=== PATIENT | male | born 1945 | race Caucasian/White ===

== ENCOUNTER 2022-12-28 06:00 | Day surgery (SDC) | payer MEDICARE, SELFPAY ==
[2022-10-16 11:21] VITALS: BMI 33.4
[2022-12-16 09:37] VITALS: BMI 33.4
--- NOTE | 2022-12-27 20:45 | WPDANESEPPF ---
Anes - Initial Pre Proc Eval Procedure: Operation Date: 12/28/22 07:30 Proposed Procedures p Screening Colonoscopy - Trey Leo MD Date/Time: 12/27/22 20:45 Surgeon: Trey Leo MD Pre Op Diagnosis: History of colon polyps Patient Data Age: 77 Gender: M Height: 1.73 m Weight: 99.7 kg Allergies Allergy/AdvReac Type Severity Reaction Status Date / Time cephalexin Allergy Unknown ITCHEY Verified 12/28/22 06:32 RASH YRS AGO BOB Inhibitors AdvReac Severe angioedema Verified 12/28/22 06:32 Home Medications Medication Instructions Recorded Confirmed Type cetirizine 10 mg tablet 10 mg PO DAILY PRN allergy 09/16/22 12/28/22 Rx symptoms #90 tabs mupirocin 2 % topical ointment 1 applic topical BID #22 grams 09/16/22 12/28/22 Rx sodium,potassium,mag sulfates 17.5 See Rx Instructions PO .COMPLEX 10/16/22 12/28/22 Rx gram-3.13 gram-1.6 gram oral soln #354 mL (Suprep Bowel Prep Kit) amlodipine 10 mg tablet 10 mg PO DAILY #90 tabs 12/17/22 12/28/22 Rx dulaglutide 1.5 mg/0.5 mL 1.5 mg (0.5 mL) subcut WEEKLY 3 12/17/22 12/28/22 Rx subcutaneous pen injector months #6.5 mL (Trulicity) ezetimibe 10 mg-simvastatin 20 mg 1 tablet PO QHS #90 tabs 12/17/22 12/28/22 Rx tablet (Vytorin) hydrochlorothiazide 25 mg tablet 25 mg PO DAILY #90 tabs 12/17/22 12/28/22 Rx insulin detemir U-100 100 unit/mL 48 unit (0.48 mL) subcut BID 3 12/17/22 12/28/22 Rx (3 mL) subcutaneous pen (Levemir months #90 mL FlexTouch U-100 Insulin) metformin 1,000 mg tablet 1,000 mg PO BID #180 tabs 12/17/22 12/28/22 Rx pen needle, diabetic 32 gauge x #200 ea 12/17/22 12/28/22 Rx 32 (TechLITE Pen Needle) blood sugar diagnostic (Accu-Chek #600 ea 12/21/22 12/28/22 Rx Ruth Plus test strips) blood-glucose meter (Accu-Chek 12/21/22 12/28/22 History Guide Glucose Meter) levothyroxine 50 mcg tablet 50 mcg PO DAILY #90 tabs 12/21/22 12/28/22 Rx Patient hx anesthesia problems: none Family hx anesthesia problems: none Results Review: All pre-operative results and documents have been reviewed as part of the pre-operative evaluation. [facility] Past Medical History Medical History (Updated 12/17/22 @ 10:16 by Sweetie Roberson PA-C) Diabetes Diastasis recti Dyslipidemia Hyperkalemia Hypertension Hypothyroidism Osteoarthritis Vitamin D deficiency Surgical History Surgical History History of colonoscopy 2017 repeat ??? History of knee replacement S/P laparoscopic appendectomy Family History Family History Father Diabetes mellitus Hypertension Heart disease Mother No problems noted. Social History Social History (Updated 12/17/22 @ 08:33 by Mary Wilson) Years smoked: 15 Smoking status: Former smoker Tobacco type: cigarettes Alcohol intake: current Drinks per week: 5 Substance use: never Substance use type: does not use Lack of Transportation: No Lack of Food: Never True Current Housing: I Have Housing Concerned About Future Housing: No Difficulty Paying Gas/Electric Bills: No Difficulty Paying for Meds: No Currently Unemployed: No Education: High School Diploma/GED Difficulty w/ Childcare or Family Care: No Living arrangements: with family Occupation/Education: retired Gender identity (if verbalized by the patient): Male Sexual Orientation (if Verbalized by the Patient): Straight or Heterosexual Spiritual care concerns: No Agree to blood products: Yes Anes - Eval Final PreProcedure Day of Procedure 12/27/22 20:45 Patient weight: obese Heart: regular rate and rhythm Lungs: clear to auscultation Airway: Mallampati scale class II Neurological: alert and oriented Last oral intake: >/= 8 hours ASA classification: III Emergent: no Anesthetic plan: proceed Anesthesia type and monitoring: general GIVS and ruth
[2022-12-28 06:25] VITALS: BP 150/104; PULSE 87; RESP 16; TEMP 36.9; O2SAT 97
[2022-12-28] MEDS: LACTATED RINGERS 1,000 ML 150 ML IV CONT (06:46)
--- NOTE | 2022-12-28 07:24 | PM.HPGS ---
History of Present Illness History of Present Illness Consent: Risks, benefits, and alternatives have been discussed and questions answered. Patient agrees to proceed with procedure. Chief complaint: History of colon polyps Narrative: Claudio Rodriguez is a 77 year old male Presents for screening colonoscopy. Patient has a history of colon polyps 10 years ago. That time had adenomatous colon polyps removed. Colonoscopy 2016 subsequently were unremarkable. Patient presents today for neoplasia screening colonoscopy. Patient's current weight appetite and bowel movements are normal. He denies abdominal pain. He has had no bleeding. Currently being treated for diabetes mellitus. Review of Systems Review of Systems: Review of systems noncontributory. [facility] Past Medical History Medical History (Updated 12/17/22 @ 10:16 by Sweetie Roberson PA-C) Diabetes Diastasis recti Dyslipidemia Hyperkalemia Hypertension Hypothyroidism Osteoarthritis Vitamin D deficiency Surgical History Surgical History History of colonoscopy 2017 repeat ??? History of knee replacement S/P laparoscopic appendectomy Family History Family History Father Diabetes mellitus Hypertension Heart disease Mother No problems noted. Social History Social History (Updated 12/17/22 @ 08:33 by Mary Wilson) Years smoked: 15 Smoking status: Former smoker Tobacco type: cigarettes Alcohol intake: current Drinks per week: 5 Substance use: never Substance use type: does not use Lack of Transportation: No Lack of Food: Never True Current Housing: I Have Housing Concerned About Future Housing: No Difficulty Paying Gas/Electric Bills: No Difficulty Paying for Meds: No Currently Unemployed: No Education: High School Diploma/GED Difficulty w/ Childcare or Family Care: No Living arrangements: with family Occupation/Education: retired Gender identity (if verbalized by the patient): Male Sexual Orientation (if Verbalized by the Patient): Straight or Heterosexual Spiritual care concerns: No Agree to blood products: Yes Meds Home Medications and Allergies Home Medications Medication Instructions Recorded Confirmed Type cetirizine 10 mg tablet 10 mg PO DAILY PRN allergy 09/16/22 12/28/22 Rx symptoms #90 tabs mupirocin 2 % topical ointment 1 applic topical BID #22 grams 09/16/22 12/28/22 Rx sodium,potassium,mag sulfates 17.5 See Rx Instructions PO .COMPLEX 10/16/22 12/28/22 Rx gram-3.13 gram-1.6 gram oral soln #354 mL (Suprep Bowel Prep Kit) amlodipine 10 mg tablet 10 mg PO DAILY #90 tabs 12/17/22 12/28/22 Rx dulaglutide 1.5 mg/0.5 mL 1.5 mg (0.5 mL) subcut WEEKLY 3 12/17/22 12/28/22 Rx subcutaneous pen injector months #6.5 mL (Trulicity) ezetimibe 10 mg-simvastatin 20 mg 1 tablet PO QHS #90 tabs 12/17/22 12/28/22 Rx tablet (Vytorin) hydrochlorothiazide 25 mg tablet 25 mg PO DAILY #90 tabs 12/17/22 12/28/22 Rx insulin detemir U-100 100 unit/mL 48 unit (0.48 mL) subcut BID 3 12/17/22 12/28/22 Rx (3 mL) subcutaneous pen (Levemir months #90 mL FlexTouch U-100 Insulin) metformin 1,000 mg tablet 1,000 mg PO BID #180 tabs 12/17/22 12/28/22 Rx pen needle, diabetic 32 gauge x #200 ea 12/17/22 12/28/22 Rx (TechLITE Pen Needle) blood sugar diagnostic (Accu-Chek #600 ea 12/21/22 12/28/22 Rx Urth Plus test strips) blood-glucose meter (Accu-Chek 12/21/22 12/28/22 History Guide Glucose Meter) levothyroxine 50 mcg tablet 50 mcg PO DAILY #90 tabs 12/21/22 12/28/22 Rx Allergies Allergy/AdvReac Type Severity Reaction Status Date / Time cephalexin Allergy Unknown ITCHEY Verified 12/28/22 06:32 RASH YRS AGO BOB Inhibitors AdvReac Severe angioedema Verified 12/28/22 06:32 Vital Signs Vital Signs - 24 hr 12/28/22 06:25 Temperature 98.4 F
[2022-12-28 07:38] LABS: Glucose Point of Care 208 mg/dl (65-105)
[2022-12-28 07:50] VITALS: BP 140/67; PULSE 77; RESP 14; O2SAT 98
[2022-12-28 08:00] VITALS: BP 138/73; PULSE 75; RESP 18; O2SAT 100
[2022-12-28 08:10] VITALS: BP 142/78; PULSE 76; RESP 18; O2SAT 99
--- NOTE | 2022-12-28 12:41 | WPDANESPN ---
Anes - Prog Note Post-Op Date/Time: 12/28/22 12:41 Cardiovascular status: normal Respiratory status: normal Airway patency: baseline Mental status: baseline Post-Op hydration status: normal Vital Signs: Last Vital Signs Temp 36.9 C 12/28/22 06:25 Pulse 76 12/28/22 08:10 Resp 18 12/28/22 08:10 BP 142/78 H 12/28/22 08:10 Pulse Ox 99 12/28/22 08:10 O2 Del Method Room Air 12/28/22 08:10 Pain Score (VAS): 0 I/O: Intake & Output 12/27/22 12/28/22 12/28/22 23:59 07:59 15:59 Intake Total 400 360 Balance 400 360 12/28/22 06:43 POC Capillary Glucose 208 H Post-procedural complaints: none Patient Feedback: Patient satisfied with anesthetic care. Other Findings: Patient vital signs back to baseline. Patient denies nausea and vomiting. Patient's pain under control. Patient OK for discharge.
== END 2022-12-28 08:35 | disposition home or self-care (01) ==
PROVIDERS: PCP Physician Assistant Medical; Visit Provider Internal Medicine Gastroenterology
PROC: 0DJD8ZZ Inspection of Lower Intestinal Tract, Via Natural or Artificial Opening Endoscopic (ICD-10-PCS; CPT 45378; principal; 2022-12-28 07:30)
DX: Z12.11 Encounter for screening for malignant neoplasm of colon (principal)
CPT/HCPCS: 45378

== ENCOUNTER 2023-09-02 08:45 | Outpatient (RCR) | payer MEDICARE, SELFPAY ==
--- NOTE | 2023-07-07 10:41 | PTOPEVAL1 ---
Assessment and note entered by Rose Mary Lowry, PT Evaluation Information Assessment Status Evaluation Diagnosis Unpec Arthritis unspec site, Pain in right shouler Onset a year Subjective Information Has seen Dr. Krishnamurthy, 2 months ago had x-rays that shows right shoulder arm bone has worn off. States was told to stop bowling by and had modification of [place] [facility] exercises. Loves to fish and casts left handed to continue this. Wednesday sharped the teeth of his serrated knife and had increased pain. Pt reports after he works out uses ice for 10 minutes. Reported Pain Level Pain Score 1: Self Report Assessment PT Clinical Summary Pt presents with c/o pain in right shoulder that has persisted for a year. Reports x-rays show that the arm bone is worn down . Has pain with reaching across his chest, and reaching behind especially. Evaluation demos significant lack of AROM in right shoulder with capsular end-feels. Pt will benefit from physical therapy to address deficits and improve function with less pain. Plan of Care Interventions Electrical Stimulation,Hot Pack/Cold Pack,Manual Therapy,Neuro Re-education,Patient/Caregiver Educati,Therapeutic Activities,Therapeutic Exercise,Ultrasound PT Services Indicated Yes Treatment Frequency and 1-2x weekly x 8 weeks Duration These treatments will address the objective and functional deficits as defined above. The patient will be advanced safely and appropriately in order for the patient to progress towards his/her prior level of function. Additional exercises will be introduced and as well as a comprehensive home exercise program upon discharge, if needed, ?to ensure carryover of functional gains achieved in the clinic. This treatment plan has been reviewed and agreement upon by the patient.
--- NOTE | 2023-07-07 10:41 | OPREHPOC ---
Outpatient Therapy Plan of Care This is a Multidisciplinary Plan of Care that may contain components documented by all disciplines (PT, OT, and ST.) PT Problem 1 PT Problem #1 Knowledge Deficit PT Goal 1 Goal Pt will be independent in HEP Pt will verbalize understanding of diagnosis and prognosis Target Visit 8 PT Problem 2 PT Problem #2 Impaired Range of Motion PT Goal 1 Goal Pt will demo RUE Passive ROM increase in flexion by 20 degrees Target Visit 8 PT Goal 2 Goal Pt will demo AROM of RUE: Flexion:120 Abduction:120 Internal rotation: L5 External rotation: base of skull Target Visit 16 PT Problem 3 PT Problem #3 Pain PT Goal 1 Goal Pt will report less pain with use of RUE in reaching Target Visit 8 PT Goal 2 Goal Pt will report greatest pain at 2/10 with any activity Target Visit 16
--- NOTE | 2023-08-05 10:21 | PTOPEVAL1 ---
Assessment and note entered by Anson Mcneal Evaluation Information Assessment Status Progress Diagnosis pain in right shoulder Onset a year Subjective Information Pt. reports that he has noticed signficant decrease in pain since beginning PT. He notes that he can reach overhead with more mobility and reach across his body. He still expresses concern regarding pain with descrbied end range of motion overhead. He states that given his progress thus far he would like to continue with PT to further improve strength and mobility with reaching overhead and behind his back. Reported Pain Level Pain Score 2: Self Report Assessment PT Clinical Summary Mr. Rodriguez has attended a total of 8 treatment sessions. In this time he has demonstrated improvements in proximal right u.e. ROM, and subjective pain reports. Despite improvements deficits remain with right shoulder IR and flexion active ROM impairing pt. ability to participate in IADL's. Continued skilled PT is indicated in order to continue to address shoulder ROM, ER and abduction strength at the right shoulder and continued pain to improve efficiency and comfort with IADL's. Plan of Care Interventions Electrical Stimulation,Hot Pack/Cold Pack,Manual Therapy,Patient/Caregiver Educati,Therapeutic Activities,Therapeutic Exercise PT Services Indicated Yes Treatment Frequency and 2x/week x 8 visits Duration These treatments will address the objective and functional deficits as defined above. The patient will be advanced safely and appropriately in order for the patient to progress towards his/her prior level of function. Additional exercises will be introduced and as well as a comprehensive home exercise program upon discharge, if needed, ?to ensure carryover of functional gains achieved in the clinic. This treatment plan has been reviewed and agreement upon by the patient.
[2023-09-02 08:46] VITALS: BP_SYST 120
--- NOTE | 2023-09-02 09:37 | PTOPDC ---
Assessment and note entered by Rose Mary Lowry, PT Assessment Status Discharge Diagnosis pain in right shoulder Onset a year Subjective Information Self perceived improvement: minimum of 50% improvement: Reports noted his increased movement in shoulder. notes greatly improved range of motion. Can reach across body more now. Reported Pain Level Pain Score 0: Self Report Assessment PT Clinical Summary Pt repots feeling at least 50% improved. States is using RUE more with activitive and movement without pain. Is using RUE more for fishing motions, is consistently doing his HEP stretching and working out at recreational center. Cont to demo significant deficits in ROM however pt feels confident in continuing his stretches and home program independently. Verbalizes understanding on returning to therapy as needed if he does not continue to progress. Thus patient is being discharged from therapy to continue HEP independently.
== END 2023-09-02 09:53 | disposition home or self-care (01) ==
LOC: ANHHIPT 08:45
PROVIDERS: PCP Physician Assistant Medical; Visit Provider Family Medicine
DX: M19.90 Unspecified osteoarthritis, unspecified site (principal); M25.511 Pain in right shoulder
CPT/HCPCS: 97014; 97110; 97140; 97162; 97750; G0283

== ENCOUNTER 2024-04-25 06:24 | Day surgery (SDC) | payer MEDICARE, SELFPAY ==
[2024-03-20 13:18] VITALS: BMI 36.6
[2024-04-19 08:03] VITALS: BMI 33.5
--- NOTE | 2024-04-24 11:38 | PM.HPGS ---
History of Present Illness History of Present Illness Consent: Risks, benefits, and alternatives have been discussed and questions answered. Patient agrees to proceed with procedure. Chief complaint: Anemia Narrative: Claudio Rodriguez is a 78 year old male Found to be anemic With a hemoglobin of 12.1.Also Hemoccult was positive. He had colonoscopy 1 year ago was unremarkable. Review of Systems Review of Systems: All systems reviewed & are unremarkable except as noted in HPI and below PMFSH Past Medical History Medical History Acute sinusitis Anemia Diabetes Diabetic nephropathy Diastasis recti Dyslipidemia Hyperkalemia Hypertension Hypothyroidism Need for vaccination Osteoarthritis Osteoarthritis Right shoulder pain URI (upper respiratory infection) Vitamin D deficiency Surgical History Surgical History History of colonoscopy 2017 repeat ??? History of knee replacement S/P laparoscopic appendectomy Family History Family History Father Diabetes mellitus Hypertension Heart disease Mother No problems noted. Social History Social History Years smoked: 15 Smoking status: Former smoker Tobacco type: cigarettes Alcohol intake: current Drinks per week: 5 Substance use: never Substance use type: does not use Lack of Transportation: No Lack of Food: Never True Current Housing: I Have Housing Concerned About Future Housing: No Difficulty Paying Gas/Electric Bills: No Difficulty Paying for Meds: No Currently Unemployed: No Education: High School Diploma/GED Difficulty w/ Childcare or Family Care: No Living arrangements: with family Occupation/Education: retired Gender identity (if verbalized by the patient): Male Sexual Orientation (if Verbalized by the Patient): Straight or Heterosexual Spiritual care concerns: No Agree to blood products: Yes Meds Home Medications and Allergies Home Medications Medication Instructions Recorded Confirmed Type blood-glucose meter (Accu-Chek 12/21/22 03/13/24 History Guide Glucose Meter) amlodipine 10 mg tablet 10 mg PO DAILY #90 tabs 12/15/23 04/25/24 Rx blood sugar diagnostic (Accu-Chek #600 ea 12/15/23 03/13/24 Rx Ruth Plus test strips) ezetimibe 10 mg-simvastatin 20 mg 1 tablet PO QHS #90 tabs 12/15/23 04/25/24 Rx tablet (Vytorin) hydrochlorothiazide 25 mg tablet 25 mg PO DAILY #90 tabs 12/15/23 04/25/24 Rx levothyroxine 50 mcg tablet 50 mcg PO DAILY #90 tabs 12/15/23 04/25/24 Rx metformin 1,000 mg tablet 1,000 mg PO BID #180 tabs 12/15/23 04/25/24 Rx pen needle, diabetic 32 gauge x #200 ea 12/15/23 03/13/24 Rx 5/32 (TechLITE Pen Needle) cetirizine 10 mg tablet (Zyrtec) 10 mg PO DAILY allergy symptoms 01/17/24 04/25/24 Rx #90 tabs flash glucose scanning reader #1 ea 03/13/24 03/13/24 Rx (FreeStyle Laurent 2 Tanner) flash glucose sensor (FreeStyle #6 ea 03/13/24 03/13/24 Rx Laurent 2 Sensor kit) semaglutide 0.25 mg or 0.5 mg (2 0.25 mg (0.368 mL) subcut WEEKLY 03/13/24 04/25/24 Rx mg/3 mL) subcutaneous pen injector #3 mL (Ozempic) insulin degludec 200 unit/mL (3 38 unit subcut BID 04/19/24 04/25/24 History mL) subcutaneous pen (Tresiba FlexTouch U-200 insulin) Allergies Allergy/AdvReac Type Severity Reaction Status Date / Time cephalexin Allergy Unknown ITCHEY Verified 04/25/24 07:18 RASH YRS AGO BOB Inhibitors AdvReac Severe angioedema Verified 04/25/24 07:18 Exam Resp: Auscultation: clear to auscultation bilaterally Cardio: Rate: regular rate Rhythm: regular rhythm GI: GI Palp: Yes Soft to palpation and No Tenderness to palpation present (GI) Assessment and Plan Assessment and plan (1) Anemia: Code(s): D64.9 - Anemia,
--- NOTE | 2024-04-24 15:24 | WPDANESEPPF ---
Anes - Initial Pre Proc Eval Procedure: Operation Date: 04/25/24 08:30 Proposed Procedures p Esophagogastroduodenoscopy - Darrel Castellanos MD Date/Time: 04/24/24 15:24 Surgeon: Darrel Castellanos MD Pre Op Diagnosis: Anemia Patient Data Age: 78 Gender: M Height: 1.73 m Weight: 100 kg Allergies Allergy/AdvReac Type Severity Reaction Status Date / Time cephalexin Allergy Unknown ITCHEY Verified 04/25/24 07:18 RASH YRS AGO BOB Inhibitors AdvReac Severe angioedema Verified 04/25/24 07:18 Home Medications Medication Instructions Recorded Confirmed Type blood-glucose meter (Accu-Chek 12/21/22 03/13/24 History Guide Glucose Meter) amlodipine 10 mg tablet 10 mg PO DAILY #90 tabs 12/15/23 04/25/24 Rx blood sugar diagnostic (Accu-Chek #600 ea 12/15/23 03/13/24 Rx Ruth Plus test strips) ezetimibe 10 mg-simvastatin 20 mg 1 tablet PO QHS #90 tabs 12/15/23 04/25/24 Rx tablet (Vytorin) hydrochlorothiazide 25 mg tablet 25 mg PO DAILY #90 tabs 12/15/23 04/25/24 Rx levothyroxine 50 mcg tablet 50 mcg PO DAILY #90 tabs 12/15/23 04/25/24 Rx metformin 1,000 mg tablet 1,000 mg PO BID #180 tabs 12/15/23 04/25/24 Rx pen needle, diabetic 32 gauge x #200 ea 12/15/23 03/13/24 Rx 5/32 (TechLITE Pen Needle) cetirizine 10 mg tablet (Zyrtec) 10 mg PO DAILY allergy symptoms 01/17/24 04/25/24 Rx #90 tabs flash glucose scanning reader #1 ea 03/13/24 03/13/24 Rx (FreeStyle Laurent 2 Meno) flash glucose sensor (FreeStyle #6 ea 03/13/24 03/13/24 Rx Laurent 2 Sensor kit) semaglutide 0.25 mg or 0.5 mg (2 0.25 mg (0.368 mL) subcut WEEKLY 03/13/24 04/25/24 Rx mg/3 mL) subcutaneous pen injector #3 mL (Ozempic) insulin degludec 200 unit/mL (3 38 unit subcut BID 04/19/24 04/25/24 History mL) subcutaneous pen (Tresiba FlexTouch U-200 insulin) Patient hx anesthesia problems: none Family hx anesthesia problems: none Results Review: All pre-operative results and documents have been reviewed as part of the pre-operative evaluation. [facility] Past Medical History Medical History Acute sinusitis Anemia Diabetes Diabetic nephropathy Diastasis recti Dyslipidemia Hyperkalemia Hypertension Hypothyroidism Need for vaccination Osteoarthritis Osteoarthritis Right shoulder pain URI (upper respiratory infection) Vitamin D deficiency Surgical History Surgical History History of colonoscopy 2017 repeat ??? History of knee replacement S/P laparoscopic appendectomy Family History Family History Father Diabetes mellitus Hypertension Heart disease Mother No problems noted. Social History Social History Years smoked: 15 Smoking status: Former smoker Tobacco type: cigarettes Alcohol intake: current Drinks per week: 5 Substance use: never Substance use type: does not use Lack of Transportation: No Lack of Food: Never True Current Housing: I Have Housing Concerned About Future Housing: No Difficulty Paying Gas/Electric Bills: No Difficulty Paying for Meds: No Currently Unemployed: No Education: High School Diploma/GED Difficulty w/ Childcare or Family Care: No Living arrangements: with family Occupation/Education: retired Gender identity (if verbalized by the patient): Male Sexual Orientation (if Verbalized by the Patient): Straight or Heterosexual Spiritual care concerns: No Agree to blood products: Yes Anes - Eval Final PreProcedure Day of Procedure 04/24/24 15:24 Patient weight: obese Heart: regular rate and rhythm Lungs: clear to auscultation Airway: Mallampati scale class II Neurological: alert and oriented Last oral intake: >/= 8 hours ASA classification: III Emergent: no Anesthetic plan: proceed Anesthesia t
[2024-04-25 07:22] VITALS: BMI 34.0
[2024-04-25 07:23] VITALS: BP 149/74; PULSE 84; RESP 18; TEMP 36.5; O2SAT 98
[2024-04-25] MEDS: LACTATED RINGERS 1,000 ML 150 ML IV CONT (07:39)
[2024-04-25 07:43] LABS: Glucose Point of Care 108 mg/dl (65-105)
[2024-04-25 08:37] VITALS: BP 123/66; PULSE 77; RESP 18; O2SAT 94
[2024-04-25 08:47] VITALS: BP 129/68; PULSE 69; RESP 18; O2SAT 97
[2024-04-25 08:57] VITALS: BP 124/71; PULSE 74; RESP 18; O2SAT 100
--- NOTE | 2024-04-25 11:57 | WPDANESPN ---
Anes - Prog Note Post-Op Date/Time: 04/25/24 11:57 Cardiovascular status: normal Respiratory status: normal Airway patency: baseline Mental status: baseline Post-Op hydration status: normal Vital Signs: Last Vital Signs Temp 36.5 C 04/25/24 07:23 Pulse 74 04/25/24 08:57 Resp 18 04/25/24 08:57 BP 124/71 04/25/24 08:57 Pulse Ox 100 04/25/24 08:57 O2 Del Method Room Air 04/25/24 08:57 Pain Score (VAS): 0 I/O: Intake & Output 04/24/24 04/25/24 04/25/24 23:59 07:59 15:59 Intake Total 350 Balance 350 04/25/24 07:37 POC Capillary Glucose 108 H Post-procedural complaints: none Patient Feedback: Patient satisfied with anesthetic care. Other Findings: Patient vital signs back to baseline. Patient denies nausea and vomiting. Patient's pain under control. Patient OK for discharge.
== END 2024-04-25 09:07 | disposition home or self-care (01) ==
PROVIDERS: PCP Physician Assistant Medical; Visit Provider Internal Medicine Gastroenterology
PROC: 0DJ08ZZ Inspection of Upper Intestinal Tract, Via Natural or Artificial Opening Endoscopic (ICD-10-PCS; CPT 43235; principal; 2024-04-25 08:30)
DX: D50.0 Iron deficiency anemia secondary to blood loss (chronic) (principal); K29.70 Gastritis, unspecified, without bleeding; K26.9 Duodenal ulcer, unspecified as acute or chronic, without hemorrhage or perforation
CPT/HCPCS: 43239